=== PATIENT | male | born 1980 | race Caucasian/White ===

== ENCOUNTER 2019-04-13 13:47 | Inpatient (IN) ==
[2019-04-13] MEDS ORDERED: *HR* FentaNYL (PF) 100 MCG/2 ML VIAL IVP ONE (14:00)
[2019-04-13] MEDS ORDERED: Ondansetron 4 MG/2 ML VIAL IVP ONE (14:00)
[2019-04-13 14:50] LABS: Basophils # 0.2 K/mcL (0.0-0.2); Basophils % 0.9 %; Eosinophils # 0.6 K/mcL (0.0-0.6); Eosinophils % 3.9 %; Hematocrit 44.9 % (37.5-50.1); Hemoglobin 15.1 g/dL (12.9-16.9); Immature Granulocytes % 0.7 % (0-4); Lymphocytes # 3.3 K/mcL (0.6-4.6); Lymphocytes % 20.6 %; Mean Corpuscular HGB Conc 33.6 g/dL (31.6-35.5); Mean Corpuscular Hemoglobin 29.3 pg (28.0-33.3); Mean Corpuscular Volume 87.2 fL (83.0-100.0); Monocytes # 0.9 K/mcL (0.0-1.3); Monocytes % 5.6 %; Neutrophils # 10.8 K/mcL (1.6-8.9); Platelet Count 271 K/mcL (140-400); Red Blood Count 5.15 M/mcL (4.19-5.50); Red Cell Distribution Width 12.3 % (11.5-14.5); Segmented Neutrophils % 68.3 %; White Blood Count 15.8 K/mcL (4.3-11.1)
[2019-04-13 15:05] LABS: Alanine Aminotransferase 27 Units/L (7-52); Albumin 4.2 g/dL (3.5-5.7); Albumin/Globulin Ratio 1.7 (1.1-2.2); Alkaline Phosphatase 66 Units/L (34-104); Aspartate Amino Transferase 46 Units/L (13-39); BUN/Creatinine Ratio 18 (6-26); Bilirubin,Indirect 0.5 mg/dL (0.0-1.0); Bilirubin,Total 0.5 mg/dL (0.3-1.0); Blood Urea Nitrogen 20 mg/dL (6-20); Calcium 9.6 mg/dL (8.6-10.3); Carbon Dioxide 25 mEq/L (23-29); Chloride 102 mEq/L (98-107); Globulin 2.5 g/dL (2.4-3.5); Glucose 177 mg/dL (70-105); Lipase 19 Units/L (11-82); Osmolality,Calculated 299 (280-300); Potassium 3.5 mEq/L (3.5-5.1); Sodium 141 mEq/L (136-145); Total Protein 6.7 g/dL (6.4-8.9); Troponin I 3.87 ng/mL (< 0.04); eGFR For African Americans > 60 (> 60); eGFR For Non-African Americans > 60 (> 60)
[2019-04-13] MEDS ORDERED: Nitroglycerin 0.4 MG TAB.SUBL SL ONE (15:23)
[2019-04-13] MEDS: Nitroglycerin 0.4 MG TAB.SUBL SL PRN ×3 (15:24→15:41)
[2019-04-13] MEDS ORDERED: *HR* Heparin 5,000 UNIT/ML VIAL IVP PRN ×2 (15:43)
[2019-04-13] MEDS ORDERED: *HR* Heparin 5,000 UNIT/ML VIAL IVP ONE (15:43)
[2019-04-13] MEDS ORDERED: Heparin 25,000 UNIT/250 ML D5W 25,000 UNIT/250 ML IV.SOLN IVC SCH (15:45)
[2019-04-13] MEDS ORDERED: Naloxone 0.4 MG/ML INJ IVP PRN (16:41)
[2019-04-13] MEDS ORDERED: Aspirin 325 MG TABLET PO ONE (17:14)
[2019-04-13 17:23] LABS: Heparin anti-factor XA UFH 0.72 IU/mL (0.30-0.70)
[2019-04-13 17:24] LABS: INR 1.1; Prothrombin Time 12.1 Seconds (9.4-12.1)
[2019-04-13] MEDS ORDERED: D5% in Water 1,000 ML IVC PRN (17:36)
[2019-04-13] MEDS ORDERED: Dextrose Gel 15 GM/37.5 ML TUBE PO PRN ×2 (17:36)
[2019-04-13] MEDS ORDERED: *HR* Dextrose 50 % in Water (Syg) 50 ML SYRINGE IVP PRN (17:36)
[2019-04-13 17:37] LABS: Chol/HDL Ratio 7.7 (0-4.9); Cholesterol 177 mg/dL (< 200); HDL Cholesterol 23 mg/dL (40-59); LDL Cholesterol,Calculated 75 mg/dL (0-99); Triglycerides 395 mg/dL (< 150)
[2019-04-13 17:39] LABS: Estimated Average Glucose 151 mg/dl
[2019-04-13] MEDS: *HR* HYDROmorphone 2 MG/ML SYRINGE IVP PRN (18:52)
[2019-04-13] MEDS: Nicotine 21 MG PATCH.TD24 TD SCH (18:52)
[2019-04-13] MEDS ORDERED: Morphine Sulfate 2 MG/ML SYRINGE IVP ONE (22:20)
[2019-04-13] MEDS ORDERED: Morphine Sulfate 2 MG/ML SYRINGE IVP STA (23:32)
[2019-04-13] MEDS ORDERED: GI Cocktail 40 ML EACH PO ONE (23:59)
[2019-04-14] MEDS ORDERED: Morphine Sulfate 2 MG/ML SYRINGE IVP STA (01:24)
[2019-04-14] MEDS: *HR* HYDROmorphone 2 MG/ML SYRINGE IVP PRN ×3 (03:10→16:21)
[2019-04-14] MEDS ORDERED: Isovue-370 500 ML BOTTLE IVP ONE (03:25)
[2019-04-14 04:01] LABS: Basophils # 0.1 K/mcL (0.0-0.2); Basophils % 0.6 %; Eosinophils # 0.3 K/mcL (0.0-0.6); Eosinophils % 1.8 %; Hematocrit 43.3 % (37.5-50.1); Hemoglobin 15.2 g/dL (12.9-16.9); Immature Granulocytes % 0.6 % (0-4); Lymphocytes # 3.2 K/mcL (0.6-4.6); Lymphocytes % 19.8 %; Mean Corpuscular HGB Conc 35.1 g/dL (31.6-35.5); Mean Corpuscular Hemoglobin 29.7 pg (28.0-33.3); Mean Corpuscular Volume 84.7 fL (83.0-100.0); Mean Platelet Volume 9.8 fL (9.4-12.4); Monocytes # 1.1 K/mcL (0.0-1.3); Monocytes % 6.9 %; Neutrophils # 11.4 K/mcL (1.6-8.9); Platelet Count 304 K/mcL (140-400); Red Blood Count 5.11 M/mcL (4.19-5.50); Red Cell Distribution Width 12.5 % (11.5-14.5); Segmented Neutrophils % 70.3 %; White Blood Count 16.2 K/mcL (4.3-11.1)
[2019-04-14 04:17] LABS: BUN/Creatinine Ratio 15 (6-26); Blood Urea Nitrogen 16 mg/dL (6-20); Calcium 9.2 mg/dL (8.6-10.3); Carbon Dioxide 24 mEq/L (23-29); Chloride 103 mEq/L (98-107); Glucose 192 mg/dL (70-105); Osmolality,Calculated 288 (280-300); Potassium 3.9 mEq/L (3.5-5.1); Sodium 136 mEq/L (136-145); eGFR For African Americans > 60 (> 60); eGFR For Non-African Americans > 60 (> 60)
[2019-04-14] MEDS ORDERED: Perflutren Lipid Microsphere 1.3 ML in 0.9 % Sodium Chloride 8.7 ML IVP ONE (08:29)
[2019-04-14] MEDS: Aspirin 81 MG TAB.CHEW PO SCH (08:30)
[2019-04-14] MEDS: Insulin LISPRO 300 UNITS/3 ML VIAL SQ SCH ×3 (08:32→16:31)
[2019-04-14] MEDS ORDERED: 0.9 % Sodium Chloride 1,000 ML ONE ×2 (08:44→09:30)
[2019-04-14] MEDS ORDERED: Verapamil 5 MG/2 ML VIAL ONE (08:45)
[2019-04-14] MEDS ORDERED: *HR* Midazolam HCl 2 MG/2 ML VIAL ONE (09:17)
[2019-04-14] MEDS ORDERED: *HR* Ticagrelor 90 MG TABLET ONE (09:38)
[2019-04-14] MEDS ORDERED: Heparin 1,000 UNITS/500 mL 500 ML ONE (09:52)
[2019-04-14] MEDS ORDERED: *HR* Heparin 10,000 UNIT/10 ML VIAL ONE (09:52)
[2019-04-14] MEDS ORDERED: ISOVUE-370 200 ML INFUS..BTL ONE (09:52)
[2019-04-14] MEDS ORDERED: Nitroglycerin 1,000 MCG/10 ML VIAL IV ONE (09:52)
[2019-04-14] MEDS: Nicotine 21 MG PATCH.TD24 TD SCH (16:30)
[2019-04-14] MEDS: *HR* Heparin 5,000 UNIT/ML VIAL SQ SCH (16:31)
[2019-04-14] MEDS ORDERED: Morphine Sulfate 2 MG/ML SYRINGE IVP ONE (20:06)
[2019-04-14] MEDS: *HR* Ticagrelor 90 MG TABLET PO SCH (20:13)
[2019-04-14] MEDS: Pantoprazole 40 MG in 0.9 % Sodium Chloride Mini Bag 100 ML IVC SCH (20:49)
[2019-04-15] MEDS: Acetaminophen 325 MG TABLET PO PRN ×3 (00:22→13:38)
[2019-04-15 01:09] LABS: Amphetamine Screen,Urine Negative ng/mL (Cutoff=1000); Barbiturate Screen,Urine Negative ng/mL (Cutoff=200); Benzodiazepines Screen,Urine Positive ng/mL (Cutoff=200); Cannabinoid Screen,Urine Negative ng/mL (Cutoff = 50); Cocaine Screen,Urine Negative ng/mL (Cutoff= 300); Opiate Screen,Urine Positive ng/mL (Cutoff=300); Phencyclidine Screen,Urine Negative ng/mL (Cutoff=25)
[2019-04-15] MEDS: Pantoprazole 40 MG in 0.9 % Sodium Chloride Mini Bag 100 ML IVC SCH ×2 (01:16→06:20)
[2019-04-15] MEDS: *HR* Heparin 5,000 UNIT/ML VIAL SQ SCH ×2 (05:07→17:04)
[2019-04-15] MEDS: Insulin LISPRO 300 UNITS/3 ML VIAL SQ SCH ×3 (07:24→17:03)
[2019-04-15] MEDS: Budesonide/Formoterol 160/4.5 1 PUFF INH IH SCH ×2 (07:51→20:09)
[2019-04-15] MEDS: Aspirin 81 MG TAB.CHEW PO SCH (08:58)
[2019-04-15] MEDS: *HR* Ticagrelor 90 MG TABLET PO SCH ×2 (08:58→20:12)
[2019-04-15] MEDS ORDERED: NON-FORMULARY MEDICATION 1 EACH EACH (Fluticasone/Umeclidin/Vilanter [Trelegy Ellipta 100- IH SCH (09:00)
[2019-04-15 09:18] LABS: White Blood Count 10.8 K/mcL (4.3-11.1)
[2019-04-15 09:19] LABS: Basophils # 0.1 K/mcL (0.0-0.2); Basophils % 0.6 %; Eosinophils # 0.1 K/mcL (0.0-0.6); Eosinophils % 1.3 %; Hematocrit 43.4 % (37.5-50.1); Hemoglobin 14.8 g/dL (12.9-16.9); Immature Granulocytes % 0.5 % (0-4); Lymphocytes # 2.4 K/mcL (0.6-4.6); Lymphocytes % 22.6 %; Mean Corpuscular HGB Conc 34.1 g/dL (31.6-35.5); Mean Corpuscular Hemoglobin 29.4 pg (28.0-33.3); Mean Corpuscular Volume 86.1 fL (83.0-100.0); Mean Platelet Volume 9.7 fL (9.4-12.4); Monocytes # 0.6 K/mcL (0.0-1.3); Monocytes % 5.2 %; Neutrophils # 7.5 K/mcL (1.6-8.9); Platelet Count 234 K/mcL (140-400); Red Blood Count 5.04 M/mcL (4.19-5.50); Red Cell Distribution Width 12.3 % (11.5-14.5); Segmented Neutrophils % 69.8 %
[2019-04-15 09:40] LABS: BUN/Creatinine Ratio 10 (6-26); Blood Urea Nitrogen 12 mg/dL (6-20); Calcium 9.8 mg/dL (8.6-10.3); Carbon Dioxide 26 mEq/L (23-29); Chloride 100 mEq/L (98-107); Glucose 198 mg/dL (70-105); Osmolality,Calculated 289 (280-300); Potassium 3.4 mEq/L (3.5-5.1); Sodium 137 mEq/L (136-145); eGFR For African Americans > 60 (> 60); eGFR For Non-African Americans > 60 (> 60)
[2019-04-15] MEDS: Isosorbide MONOnitrate (24 HR) 30 MG TAB.ER.24H PO SCH (11:58)
[2019-04-15] MEDS: Nitroglycerin 0.4 MG TAB.SUBL SL PRN ×4 (13:31→18:56)
[2019-04-15] MEDS: Nicotine 21 MG PATCH.TD24 TD SCH (17:03)
[2019-04-15] MEDS: *HR* HYDROmorphone 2 MG/ML SYRINGE IVP PRN (19:03)
[2019-04-15] MEDS ORDERED: *HR* LORazepam 2 MG/ML VIAL IVP ONE (20:02)
[2019-04-15] MEDS: Pantoprazole 40 MG VIAL IVP SCH (20:54)
[2019-04-15] MEDS: clonazePAM 1 MG TABLET PO PRN (21:58)
[2019-04-16] MEDS: *HR* HYDROmorphone 2 MG/ML SYRINGE IVP PRN ×2 (04:44→22:47)
[2019-04-16 05:24] LABS: BUN/Creatinine Ratio 11 (6-26); Blood Urea Nitrogen 13 mg/dL (6-20); Calcium 9.6 mg/dL (8.6-10.3); Carbon Dioxide 23 mEq/L (23-29); Chloride 104 mEq/L (98-107); Glucose 138 mg/dL (70-105); Osmolality,Calculated 282 (280-300); Sodium 135 mEq/L (136-145); eGFR For African Americans > 60 (> 60); eGFR For Non-African Americans > 60 (> 60)
[2019-04-16] MEDS: Ondansetron 4 MG/2 ML VIAL IVP PRN ×2 (06:17→23:16)
[2019-04-16] MEDS: *HR* Heparin 5,000 UNIT/ML VIAL SQ SCH ×2 (06:17→16:33)
[2019-04-16] MEDS: Budesonide/Formoterol 160/4.5 1 PUFF INH IH SCH ×2 (07:41→20:15)
[2019-04-16] MEDS: Insulin LISPRO 300 UNITS/3 ML VIAL SQ SCH ×3 (07:47→16:30)
[2019-04-16] MEDS: Metoprolol XL (24 HR) Succ 50 MG TAB.ER.24H PO SCH (07:55)
[2019-04-16] MEDS: Pantoprazole 40 MG VIAL IVP SCH (07:55)
[2019-04-16] MEDS: *HR* Ticagrelor 90 MG TABLET PO SCH ×2 (07:56→20:28)
[2019-04-16] MEDS: Isosorbide MONOnitrate (24 HR) 30 MG TAB.ER.24H PO SCH (07:56)
[2019-04-16] MEDS: Aspirin 81 MG TAB.CHEW PO SCH (07:56)
[2019-04-16] MEDS: Isosorbide MONOnitrate (24 HR) 60 MG TAB.ER.24H PO SCH (07:57)
[2019-04-16] MEDS ORDERED: Perflutren Lipid Microsphere 1.3 ML in 0.9 % Sodium Chloride 8.7 ML IVP ONE (08:47)
[2019-04-16] MEDS ORDERED: GI Cocktail 40 ML EACH PO ONE (09:00)
[2019-04-16] MEDS: Acetaminophen 325 MG TABLET PO PRN ×2 (11:44→18:03)
[2019-04-16] MEDS: Nicotine 21 MG PATCH.TD24 TD SCH (16:33)
[2019-04-16] MEDS: clonazePAM 1 MG TABLET PO PRN (20:28)
[2019-04-16] MEDS: Nitroglycerin 0.4 MG TAB.SUBL SL PRN ×3 (22:56→23:08)
[2019-04-17 05:19] LABS: Basophils # 0.1 K/mcL (0.0-0.2); Basophils % 0.7 %; Eosinophils # 0.2 K/mcL (0.0-0.6); Eosinophils % 2.5 %; Hematocrit 42.1 % (37.5-50.1); Hemoglobin 13.9 g/dL (12.9-16.9); Immature Granulocytes % 0.6 % (0-4); Lymphocytes # 1.8 K/mcL (0.6-4.6); Lymphocytes % 21.3 %; Mean Corpuscular Hemoglobin 29.1 pg (28.0-33.3); Mean Corpuscular Volume 88.3 fL (83.0-100.0); Mean Platelet Volume 9.8 fL (9.4-12.4); Monocytes # 0.5 K/mcL (0.0-1.3); Monocytes % 6.3 %; Neutrophils # 5.7 K/mcL (1.6-8.9); Platelet Count 216 K/mcL (140-400); Red Blood Count 4.77 M/mcL (4.19-5.50); Red Cell Distribution Width 11.9 % (11.5-14.5); Segmented Neutrophils % 68.6 %; White Blood Count 8.3 K/mcL (4.3-11.1)
[2019-04-17] MEDS: *HR* Heparin 5,000 UNIT/ML VIAL SQ SCH ×2 (05:46→20:46)
[2019-04-17 06:05] LABS: BUN/Creatinine Ratio 12 (6-26); Blood Urea Nitrogen 15 mg/dL (6-20); Calcium 9.6 mg/dL (8.6-10.3); Carbon Dioxide 24 mEq/L (23-29); Chloride 103 mEq/L (98-107); Glucose 125 mg/dL (70-105); Osmolality,Calculated 286 (280-300); Potassium 4.1 mEq/L (3.5-5.1); Sodium 137 mEq/L (136-145); eGFR For African Americans > 60 (> 60); eGFR For Non-African Americans > 60 (> 60)
[2019-04-17] MEDS: Budesonide/Formoterol 160/4.5 1 PUFF INH IH SCH ×2 (07:50→19:56)
[2019-04-17] MEDS: Insulin LISPRO 300 UNITS/3 ML VIAL SQ SCH ×3 (08:19→20:47)
[2019-04-17] MEDS: Aspirin 81 MG TAB.CHEW PO SCH (09:09)
[2019-04-17] MEDS: *HR* Ticagrelor 90 MG TABLET PO SCH ×2 (09:10→20:46)
[2019-04-17] MEDS: Nitroglycerin 0.4 MG TAB.SUBL SL PRN ×3 (09:10→09:20)
[2019-04-17] MEDS: Metoprolol XL (24 HR) Succ 50 MG TAB.ER.24H PO SCH (09:10)
[2019-04-17] MEDS: Isosorbide MONOnitrate (24 HR) 60 MG TAB.ER.24H PO SCH (09:10)
[2019-04-17] MEDS ORDERED: Heparin 1,000 UNITS/500 mL 500 ML ONE (12:48)
[2019-04-17] MEDS ORDERED: ISOVUE-370 200 ML INFUS..BTL ONE (12:48)
[2019-04-17] MEDS ORDERED: Nitroglycerin 1,000 MCG/10 ML VIAL IV ONE (12:48)
[2019-04-17] MEDS ORDERED: *HR* Heparin 10,000 UNIT/10 ML VIAL ONE (12:48)
[2019-04-17] MEDS ORDERED: 0.9 % Sodium Chloride 1,000 ML ONE (12:48)
[2019-04-17] MEDS ORDERED: *HR* Midazolam HCl 2 MG/2 ML VIAL ONE (13:08)
[2019-04-17] MEDS ORDERED: *HR* FentaNYL (PF) 100 MCG/2 ML VIAL ONE (13:09)
[2019-04-17] MEDS ORDERED: Tirofiban 12.5 MG/250ML 12.5 MG/250 ML BAG ONE (13:20)
[2019-04-17] MEDS: Acetaminophen 325 MG TABLET PO PRN (20:46)
[2019-04-17] MEDS: Nicotine 21 MG PATCH.TD24 TD SCH (20:47)
[2019-04-17] MEDS: clonazePAM 1 MG TABLET PO PRN (21:02)
[2019-04-18] MEDS ORDERED: *HR* Metoprolol 5 MG/5 ML VIAL IVP PRN (02:18)
[2019-04-18] MEDS: Acetaminophen 325 MG TABLET PO PRN ×3 (04:15→20:19)
[2019-04-18] MEDS: clonazePAM 1 MG TABLET PO PRN (04:28)
[2019-04-18 05:35] LABS: Basophils # 0.1 K/mcL (0.0-0.2); Basophils % 0.7 %; Eosinophils # 0.1 K/mcL (0.0-0.6); Hematocrit 40.1 % (37.5-50.1); Hemoglobin 13.8 g/dL (12.9-16.9); Immature Granulocytes % 0.9 % (0-4); Lymphocytes # 0.7 K/mcL (0.6-4.6); Lymphocytes % 11.1 %; Mean Corpuscular HGB Conc 34.4 g/dL (31.6-35.5); Mean Corpuscular Hemoglobin 28.9 pg (28.0-33.3); Mean Corpuscular Volume 84.1 fL (83.0-100.0); Mean Platelet Volume 9.8 fL (9.4-12.4); Monocytes # 0.5 K/mcL (0.0-1.3); Monocytes % 7.2 %; Neutrophils # 5.3 K/mcL (1.6-8.9); Platelet Count 236 K/mcL (140-400); Red Blood Count 4.77 M/mcL (4.19-5.50); Segmented Neutrophils % 79.1 %; White Blood Count 6.7 K/mcL (4.3-11.1)
[2019-04-18 05:59] LABS: BUN/Creatinine Ratio 14 (6-26); Blood Urea Nitrogen 17 mg/dL (6-20); Calcium 9.3 mg/dL (8.6-10.3); Carbon Dioxide 20 mEq/L (23-29); Chloride 101 mEq/L (98-107); Glucose 138 mg/dL (70-105); Osmolality,Calculated 284 (280-300); Potassium 3.8 mEq/L (3.5-5.1); Sodium 135 mEq/L (136-145); eGFR For African Americans > 60 (> 60); eGFR For Non-African Americans > 60 (> 60)
[2019-04-18] MEDS: *HR* Heparin 5,000 UNIT/ML VIAL SQ SCH ×2 (06:09→17:37)
[2019-04-18] MEDS: Budesonide/Formoterol 160/4.5 1 PUFF INH IH SCH ×2 (08:00→21:39)
[2019-04-18] MEDS: Insulin LISPRO 300 UNITS/3 ML VIAL SQ SCH ×3 (08:07→17:14)
[2019-04-18] MEDS: *HR* Ticagrelor 90 MG TABLET PO SCH ×2 (08:09→20:04)
[2019-04-18] MEDS: Aspirin 81 MG TAB.CHEW PO SCH (08:09)
[2019-04-18] MEDS: Metoprolol XL (24 HR) Succ 50 MG TAB.ER.24H PO SCH (08:09)
[2019-04-18] MEDS: Isosorbide MONOnitrate (24 HR) 60 MG TAB.ER.24H PO SCH (08:09)
[2019-04-18] MEDS ORDERED: 0.9 % Sodium Chloride 1,000 ML IVC ONE (10:35)
[2019-04-18] MEDS ORDERED: 0.9 % Sodium Chloride 1,000 ML ONE (10:37)
[2019-04-18] MEDS ORDERED: Isovue-370 500 ML BOTTLE IVP ONE (14:26)
[2019-04-18] MEDS ORDERED: 0.9 % Sodium Chloride 1,000 ML IVC SCH (14:30)
[2019-04-18 15:12] LABS: Basophils # 0.1 K/mcL (0.0-0.2); Basophils % 0.8 %; Eosinophils % 0.2 %; Hematocrit 36.5 % (37.5-50.1); Hemoglobin 12.4 g/dL (12.9-16.9); Immature Granulocytes % 0.9 % (0-4); Lymphocytes # 0.8 K/mcL (0.6-4.6); Lymphocytes % 11.6 %; Mean Corpuscular Hemoglobin 29.6 pg (28.0-33.3); Mean Corpuscular Volume 87.1 fL (83.0-100.0); Mean Platelet Volume 9.4 fL (9.4-12.4); Monocytes # 0.6 K/mcL (0.0-1.3); Monocytes % 8.7 %; Platelet Count 214 K/mcL (140-400); Red Blood Count 4.19 M/mcL (4.19-5.50); Red Cell Distribution Width 12.1 % (11.5-14.5); Segmented Neutrophils % 77.8 %; White Blood Count 6.5 K/mcL (4.3-11.1)
[2019-04-18 16:03] LABS: Alanine Aminotransferase 25 Units/L (7-52); Albumin 3.7 g/dL (3.5-5.7); Albumin/Globulin Ratio 1.4 (1.1-2.2); Alkaline Phosphatase 52 Units/L (34-104); Aspartate Amino Transferase 22 Units/L (13-39); BUN/Creatinine Ratio 11 (6-26); Bilirubin,Total 0.4 mg/dL (0.3-1.0); Blood Urea Nitrogen 15 mg/dL (6-20); Calcium 8.8 mg/dL (8.6-10.3); Carbon Dioxide 20 mEq/L (23-29); Chloride 104 mEq/L (98-107); Globulin 2.6 g/dL (2.4-3.5); Glucose 137 mg/dL (70-105); Osmolality,Calculated 281 (280-300); Potassium 3.8 mEq/L (3.5-5.1); Sodium 134 mEq/L (136-145); Total Protein 6.3 g/dL (6.4-8.9); eGFR For African Americans > 60 (> 60); eGFR For Non-African Americans > 60 (> 60)
[2019-04-18] MEDS ORDERED: Acetaminophen IV 1,000 MG/100 ML INFUS..BTL IVPB ONE (16:42)
[2019-04-18] MEDS ORDERED: Azithromycin 250 MG TABLET PO SCH (17:00)
[2019-04-18] MEDS: 0.9 % Sodium Chloride 1,000 ML IVC SCH ×2 (17:13→23:43)
[2019-04-18] MEDS: predniSONE 20 MG TABLET PO SCH (17:36)
[2019-04-18] MEDS: Nicotine 21 MG PATCH.TD24 TD SCH (17:36)
[2019-04-18 17:49] LABS: Adenovirus Not Detected (Not Detect); Coronavirus 229E Not Detected (Not Detect); Coronavirus HKU1 Not Detected (Not Detect); Coronavirus NL63 Not Detected (Not Detect); Coronavirus OC43 Not Detected (Not Detect); Human Metapneumovirus Not Detected (Not Detect); Human Rhinovirus/Enterovirus DETECTED (Not Detect)
[2019-04-18 17:50] LABS: Influenza A Subtype 2009 H1 DETECTED (Not Detect); Influenza A Untypeable Not Detected (Not Detect); Influenza B Not Detected (Not Detect); Parainfluenza Virus 1 Not Detected (Not Detect); Parainfluenza Virus 2 Not Detected (Not Detect); Parainfluenza Virus 3 Not Detected (Not Detect)
[2019-04-18 17:51] LABS: Bordetella Pertussis Not Detected (Not Detect); Chlamydophila pneumoniae Not Detected (Not Detect); Mycoplasma pneumoniae Not Detected (Not Detect); Parainfluenza Virus 4 Not Detected (Not Detect); Respiratory Syncytial Virus Not Detected (Not Detect)
[2019-04-18] MEDS: Levalbuterol 1 PUFF INHALER IH SCH (21:38)
[2019-04-18] MEDS: *HR* HYDROmorphone 2 MG/ML SYRINGE IVP PRN (22:39)
[2019-04-18 22:41] LABS: Bilirubin,Urine Negative (Negative); Blood,Urine Negative (Negative); Clarity,Urine Clear (Clear); Color,Urine Yellow (Yellow); Glucose,Urine (UA) Normal (Normal); Ketones,Urine Negative (Negative); Leukocyte Esterase,Urine Negative (Negative); Nitrite,Urine Negative (Negative); Protein,Urine Negative (Neg-Trace); Specific Gravity,Urine > 1.030 (1.010-1.025); Urobilinogen,Urine Normal (Normal)
[2019-04-19] MEDS: Levalbuterol 1 PUFF INHALER IH SCH ×2 (04:34→10:22)
[2019-04-19] MEDS: *HR* Heparin 5,000 UNIT/ML VIAL SQ SCH (04:58)
[2019-04-19] MEDS: Acetaminophen 325 MG TABLET PO PRN (05:00)
[2019-04-19] MEDS: Insulin LISPRO 300 UNITS/3 ML VIAL SQ SCH ×2 (07:48→12:56)
[2019-04-19] MEDS: Aspirin 81 MG TAB.CHEW PO SCH (08:35)
[2019-04-19] MEDS: *HR* Ticagrelor 90 MG TABLET PO SCH (08:35)
[2019-04-19] MEDS: Metoprolol XL (24 HR) Succ 50 MG TAB.ER.24H PO SCH (08:35)
[2019-04-19] MEDS: predniSONE 20 MG TABLET PO SCH (08:35)
[2019-04-19] MEDS: Isosorbide MONOnitrate (24 HR) 60 MG TAB.ER.24H PO SCH (08:35)
[2019-04-19] MEDS: 0.9 % Sodium Chloride 1,000 ML IVC SCH (08:40)
[2019-04-19] MEDS: Budesonide/Formoterol 160/4.5 1 PUFF INH IH SCH (10:21)
[2019-04-19 11:28] VITALS: BP 121/75
[2019-04-19 15:03] LABS: Basophils % 0.3 %; Hematocrit 35.9 % (37.5-50.1); Hemoglobin 12.1 g/dL (12.9-16.9); Immature Granulocytes % 0.4 % (0-4); Lymphocytes # 0.7 K/mcL (0.6-4.6); Lymphocytes % 10.1 %; Mean Corpuscular HGB Conc 33.7 g/dL (31.6-35.5); Mean Corpuscular Hemoglobin 28.5 pg (28.0-33.3); Mean Corpuscular Volume 84.7 fL (83.0-100.0); Mean Platelet Volume 9.8 fL (9.4-12.4); Monocytes # 0.4 K/mcL (0.0-1.3); Monocytes % 5.9 %; Neutrophils # 5.7 K/mcL (1.6-8.9); Platelet Count 238 K/mcL (140-400); Red Blood Count 4.24 M/mcL (4.19-5.50); Red Cell Distribution Width 12.4 % (11.5-14.5); Segmented Neutrophils % 83.3 %; White Blood Count 6.8 K/mcL (4.3-11.1)
[2019-04-19 15:22] LABS: BUN/Creatinine Ratio 13 (6-26); Blood Urea Nitrogen 13 mg/dL (6-20); Calcium 8.5 mg/dL (8.6-10.3); Carbon Dioxide 20 mEq/L (23-29); Chloride 107 mEq/L (98-107); Glucose 138 mg/dL (70-105); Osmolality,Calculated 284 (280-300); Sodium 136 mEq/L (136-145); eGFR For African Americans > 60 (> 60); eGFR For Non-African Americans > 60 (> 60)
== END 2019-04-19 16:34 | disposition home or self-care (01) | DRG 174 ==
LOC: EMEROOARM 13:47 → 2NENU 13:47 → SUATTDRO 20:36 → 2NENU 21:56 → 2NNU 04-14 02:57 → SUATTDRO 04-14 11:54
PROVIDERS: ADMIT Internal Medicine; ATTEND Pharmacist

== ENCOUNTER 2019-11-11 01:01 | Observation (INO) ==
[2019-11-11] MEDS ORDERED: Isovue-370 500 ML BOTTLE IVP ONE (01:14)
[2019-11-11 01:20] LABS: Basophils # 0.1 K/mcL (0.0-0.2); Basophils % 0.6 %; Eosinophils # 0.4 K/mcL (0.0-0.6); Eosinophils % 2.4 %; Hematocrit 43.1 % (37.5-50.1); Hemoglobin 15.1 g/dL (12.9-16.9); Immature Granulocytes % 0.4 % (0-4); Lymphocytes # 3.8 K/mcL (0.6-4.6); Lymphocytes % 25.5 %; Mean Corpuscular Hemoglobin 28.7 pg (28.0-33.3); Mean Corpuscular Volume 81.9 fL (83.0-100.0); Mean Platelet Volume 9.1 fL (9.4-12.4); Monocytes # 0.9 K/mcL (0.0-1.3); Monocytes % 5.9 %; Neutrophils # 9.8 K/mcL (1.6-8.9); Platelet Count 268 K/mcL (140-400); Red Blood Count 5.26 M/mcL (4.19-5.50); Red Cell Distribution Width 12.6 % (11.5-14.5); Segmented Neutrophils % 65.2 %; White Blood Count 15.1 K/mcL (4.3-11.1)
[2019-11-11 01:29] LABS: INR 1.1; Prothrombin Time 12.8 Seconds (9.4-12.1)
[2019-11-11 01:32] LABS: Activated Partial Thrombo Time 36.8 Seconds (26.0-36.0)
[2019-11-11 01:46] LABS: BUN/Creatinine Ratio 11 (6-26); Blood Urea Nitrogen 13 mg/dL (6-20); Calcium 10.4 mg/dL (8.6-10.3); Carbon Dioxide 20 mEq/L (23-29); Chloride 102 mEq/L (98-107); Glucose 97 mg/dL (70-105); Osmolality,Calculated 282 (280-300); Potassium 3.6 mEq/L (3.5-5.1); Sodium 136 mEq/L (136-145); Troponin I < 0.03 ng/mL (< 0.04); eGFR For African Americans > 60 (> 60); eGFR For Non-African Americans > 60 (> 60)
[2019-11-11] MEDS ORDERED: Morphine Sulfate 2 MG/ML SYRINGE IVP ONE (02:05)
[2019-11-11] MEDS ORDERED: Ondansetron 4 MG/2 ML VIAL IVP PRN (03:55)
[2019-11-11] MEDS ORDERED: Naloxone 0.4 MG/ML INJ IVP PRN (03:55)
[2019-11-11] MEDS ORDERED: 0.9 % Sodium Chloride 1,000 ML IVC SCH (06:15)
[2019-11-11] MEDS ORDERED: Nitroglycerin 0.4 MG TAB.SUBL SL PRN (06:30)
[2019-11-11] MEDS: Insulin LISPRO 300 UNITS/3 ML VIAL SQ SCH ×3 (06:45→17:10)
[2019-11-11] MEDS ORDERED: Acetaminophen 325 MG TABLET PO PRN (06:48)
[2019-11-11] MEDS: Morphine Sulfate 2 MG/ML SYRINGE IVP PRN ×3 (07:06→22:29)
[2019-11-11] MEDS ORDERED: Metoprolol XL (24 HR) Succ 50 MG TAB.ER.24H PO SCH (09:00)
[2019-11-11] MEDS: *HR* Ticagrelor 90 MG TABLET PO SCH ×2 (13:25→20:09)
[2019-11-11] MEDS: clonazePAM 1 MG TABLET PO SCH ×2 (13:25→20:09)
[2019-11-11] MEDS: lisinopriL 10 MG TABLET PO SCH (13:25)
[2019-11-11] MEDS: Aspirin 81 MG TAB.CHEW PO SCH (13:25)
[2019-11-11] MEDS: Nicotine 21 MG PATCH.TD24 TD SCH (13:26)
[2019-11-11] MEDS: *HR* Heparin 5,000 UNIT/ML VIAL SQ SCH (17:10)
[2019-11-11] MEDS ORDERED: NON-FORMULARY MEDICATION 1 EACH EACH (Pantoprazole Sodium [Protonix] 40 MG) PO SCH (21:00)
[2019-11-12 02:21] LABS: Amphetamine Screen,Urine Positive ng/mL (Cutoff=1000); Barbiturate Screen,Urine Negative ng/mL (Cutoff=200); Benzodiazepines Screen,Urine Negative ng/mL (Cutoff=200); Cannabinoid Screen,Urine Negative ng/mL (Cutoff = 50); Cocaine Screen,Urine Positive ng/mL (Cutoff= 300); Opiate Screen,Urine Positive ng/mL (Cutoff=300); Phencyclidine Screen,Urine Negative ng/mL (Cutoff=25)
[2019-11-12] MEDS: Insulin LISPRO 300 UNITS/3 ML VIAL SQ SCH ×2 (02:33→05:47)
[2019-11-12] MEDS: Morphine Sulfate 2 MG/ML SYRINGE IVP PRN (03:24)
[2019-11-12] MEDS: *HR* Heparin 5,000 UNIT/ML VIAL SQ SCH (04:42)
[2019-11-12 06:02] LABS: Basophils # 0.1 K/mcL (0.0-0.2); Basophils % 0.9 %; Eosinophils # 0.4 K/mcL (0.0-0.6); Eosinophils % 4.8 %; Hematocrit 40.4 % (37.5-50.1); Hemoglobin 13.9 g/dL (12.9-16.9); Immature Granulocytes % 0.4 % (0-4); Lymphocytes # 2.4 K/mcL (0.6-4.6); Lymphocytes % 28.1 %; Mean Corpuscular HGB Conc 34.4 g/dL (31.6-35.5); Mean Corpuscular Hemoglobin 29.5 pg (28.0-33.3); Mean Corpuscular Volume 85.8 fL (83.0-100.0); Mean Platelet Volume 9.5 fL (9.4-12.4); Monocytes # 0.5 K/mcL (0.0-1.3); Monocytes % 5.4 %; Neutrophils # 5.2 K/mcL (1.6-8.9); Platelet Count 187 K/mcL (140-400); Red Blood Count 4.71 M/mcL (4.19-5.50); Red Cell Distribution Width 12.6 % (11.5-14.5); Segmented Neutrophils % 60.4 %; White Blood Count 8.5 K/mcL (4.3-11.1)
[2019-11-12 06:10] LABS: Alanine Aminotransferase 30 Units/L (7-52); Albumin 4.3 g/dL (3.5-5.7); Alkaline Phosphatase 79 Units/L (34-104); Aspartate Amino Transferase 19 Units/L (13-39); BUN/Creatinine Ratio 12 (6-26); Bilirubin,Total 0.7 mg/dL (0.3-1.0); Blood Urea Nitrogen 13 mg/dL (6-20); Calcium 8.8 mg/dL (8.6-10.3); Carbon Dioxide 21 mEq/L (23-29); Chloride 107 mEq/L (98-107); Globulin 2.1 g/dL (2.4-3.5); Glucose 104 mg/dL (70-105); Osmolality,Calculated 284 (280-300); Potassium 3.7 mEq/L (3.5-5.1); Sodium 137 mEq/L (136-145); Total Protein 6.4 g/dL (6.4-8.9); eGFR For African Americans > 60 (> 60); eGFR For Non-African Americans > 60 (> 60)
[2019-11-12 06:12] LABS: Chol/HDL Ratio 5.2 (0-4.9); Cholesterol 104 mg/dL (< 200); HDL Cholesterol 20 mg/dL (40-59); Triglycerides 451 mg/dL (< 150)
[2019-11-12 06:57] VITALS: BP 131/83
[2019-11-12] MEDS: Nicotine 21 MG PATCH.TD24 TD SCH (07:58)
[2019-11-12] MEDS: *HR* Ticagrelor 90 MG TABLET PO SCH (07:58)
[2019-11-12] MEDS: clonazePAM 1 MG TABLET PO SCH (07:58)
[2019-11-12] MEDS: lisinopriL 10 MG TABLET PO SCH (07:58)
[2019-11-12] MEDS: Aspirin 81 MG TAB.CHEW PO SCH (07:58)
== END 2019-11-12 10:55 | disposition home or self-care (01) ==
LOC: 3BNU 01:01 → EMEROOARM 01:01 → 3BNU 04:25
PROVIDERS: ADMIT Internal Medicine; ATTEND Internal Medicine